=== PATIENT | male | born 1990 | race Caucasian/White ===

== ENCOUNTER 2020-10-16 01:58 | Emergency (ER) | payer SELFPAY ==
[~2020-10-16] VITALS: Ht 177.8 cm; Wt 111.4 kg
[2020-10-16 03:00] VITALS: BP 149/98
[2020-10-16] MEDS ORDERED: RX-AMOXICILLIN 500 MG CAP #3 PPK PO STA (03:23)
[2020-10-16] MEDS ORDERED: RX-NAPROXEN (NAPROSYN) 250 MG TAB PPK#4 PO STA (03:23)
[2020-10-16] MEDS ORDERED: AMOX875T2 PO (03:25)
[2020-10-16] MEDS ORDERED: NAPR500T8 PO (03:25)
[2020-10-16] MEDS ORDERED: LIDO20SO23 MM (03:25)
--- NOTE | 2020-10-16 03:25 | ED EENT ---
History of Present Illness General Chief Complaint: Dental Problems/Pain Stated Complaint: DENTAL PAIN Nursing Triage Note: AMBULATES TO ROOM #5 WITH C/O DENTAL PAIN. REPORTS DISCOMFORT TO DISTAL R UPPER MOLAR BEAGN ON 10/15/20. STATES, "IT HURTS EVERY TIME I TAKE A BREATH." REPORTS TO HAVE TAKEN 600MG IBUPROFEN AT 2200. Source: patient History of Present Illness Date Seen by Provider: Oct 16, 2020 Time Seen by Provider: 03:15 Initial Comments PT ARRIVES VIA POV FROM HOME C/O DENTAL PAIN--RIGHT UPPER 3RD MOLAR--FOR THE LAST COUPLE OF DAYS HAS HAD SIMILAR PROBLEMS WITH THIS TOOTH IN THE PAST--NEVER GOES TO DENTIST NO FEVER NO SWELLING TO FACE TOOK IBUPROFEN 600 MG AT 2200 TONIGHT, OTHERWISE HAS NOT TAKEN ANYTHING FOR PAIN PCP: ALICIA, BUT NEVER GOES TO OR DENTIST Allergies and Home Medications Allergies Coded Allergies: No Known Drug Allergies (Unverified , 10/16/20) Home Medications Amoxicillin 875 Mg Tablet, 875 MG PO BID Prescribed by: BONIFACIO ANTOINE on 10/16/20 032 Lidocaine HCl 15 Ml Solution, 1-2 ML MM [id number] Prescribed by: BONIFACIO ANTOINE on 10/16/20 0325 Naproxen 500 Mg Tablet.dr, 500 MG PO BID Prescribed by: BONIFACIO ANTOINE on 10/16/20 032 Patient Home Medication List Home Medication List Reviewed: Yes Review of Systems Review of Systems Constitutional: no symptoms reported Eyes: No Symptoms Reported Ears: No Symptoms Reported Nose: no symptoms reported Mouth: see HPI Throat: no symptoms reported Respiratory: no symptoms reported Cardiovascular: no symptoms reported Musculoskeletal: no symptoms reported Skin: no symptoms reported Neurological: No Symptoms Reported Past Ljmxwaq-Ycuuhe-Decqdv Hx Past Med/Social Hx: Reviewed and Corrections made Patient Social History Alcohol Use: Denies Use Drug of Choice: THC Smoking Status: Current Everyday Smoker (1 TO 1 1/2 PPD) Type Used: Cigarettes 2nd Hand Smoke Exposure: Yes Recent Infectious Disease Expo: No Recent Hopitalizations: No Substance type: Marijuana Seasonal Allergies Seasonal Allergies: No Past Medical History Surgeries: No Respiratory: No Cardiac: No Neurological: No Genitourinary: No Gastrointestinal: No Musculoskeletal: No Endocrine: No HEENT: No Cancer: No Psychosocial: No Integumentary: No Blood Disorders: No Physical Exam Vital Signs Vital Signs - First Documented 10/16/20 03:00 Temp 36.9 Pulse 83 Resp 18 B/P (MAP) 149/98 (115) Pulse Ox 96 O2 Delivery Room Air Height, Weight, BMI Height: '" Weight: lbs. oz. kg; 35.00 BMI Method: General Appearance: WD/WN, no apparent distress Eyes: bilateral eye normal inspection Ears: bilateral ear auricle normal, bilateral ear other (LARGE AMOUNT OF CERUMEN BILATERALLY, VISUALIZED ASPECTS OF TM'S APPEAR NORMAL) Nose: normal inspection Mouth/Throat: No mandibular swelling, No maxillary swelling, No trismus; other (RIGHT UPPER 3RD MOLAR DECAYED DOWN TO GUM LINE WITH MILD SURROUNDING INFLAMMATION OF ADJACENT GUM. NO FLUCTUANCE. NO DRAINAGE) Neck: non-tender, full range of motion, supple, normal inspection; No lymphadenopathy (R), No lymphadenopathy (L) Cardiovascular: regular rate, rhythm, no murmur Respiratory: normal breath sounds Neurologic/Psychiatric: milk treater II-XII nml as tested, no motor/sensory deficits, alert, normal mood/affect, oriented x 3 Skin: normal color, warm/dry, tattoos/piercings (TATTOOS) Progress/Results/Core Measures Results/Orders My Orders Orders - BONIFACIO ANTOINE DO Rx-Amoxicillin Capsule (Rx-Polymox Capsu (10/16/20 03:23) Rx-Naproxen (Rx-Naprosyn) (10/16/20 03:23) Lidocaine 2% Viscous 15 Ml (Xylocaine Vi (10/16/20 03:30) Vital Signs/I&O 10/16/20 03:00 Temp 36.9 Pulse 83 Resp 18 B/P (MAP) 149/98 (115) Pulse Ox 96 O2 Delivery Room Air Blood Pressure Mean: 115 Departure Impression Primary Impression: Dental caries Disposition: 01 HOME, SELF-CARE Condition: Stable Departure-Patient Inst. Referrals: [facility] Patient Instructions: Tooth Decay, Adult (DC) Add. Discharge Instructions: FREQUENT [place] SWISHES FOLLOW UP WITH [facility] SOON POSSIBLE--CALL TODAY TO SCHEDULE AN APPOINTMENT All discharge instructions reviewed with patient and/or family. Voiced understanding. Scripts Naproxen (Naproxen) 500 Mg Tablet.dr 500 MG PO BID, #20 TAB Prov: BONIFACIO ANTOINE DO 10/16/20 Lidocaine HCl (Lidocaine HCl Viscous) 15 Ml Solution 1-2 ML MM [id number], #120 ML Prov: BONIFACIO ANTOINE DO 10/16/20 Amoxicillin (Amoxicillin) 875 Mg Tablet 875 MG PO BID, #20 TAB Prov: BONIFACIO ANTOINE DO 10/16/20 BONIFACIO ANTOINE DO Oct 16, 2020 03:25
[2020-10-16] MEDS ORDERED: LIDOCAINE 2% VISCOUS 15 ML UDC MM ONE (03:30)
== END 2020-10-16 03:37 | disposition home or self-care (01) ==
LOC: ER 02:04
DX: K02.9 Dental caries, unspecified (principal); I10 Essential (primary) hypertension; F17.210 Nicotine dependence, cigarettes, uncomplicated
CPT/HCPCS: 99283

== ENCOUNTER → 2021-04-29 | Outpatient (CLI) | payer SELFPAY ==
[~2021-04-29] MED LIST: AMOX875T2 PO; LIDO20SO23 MM; NAPR500T8 PO
--- NOTE | 2021-04-29 08:46 | Diagnostic Imaging Report ---
EXAMINATION: CT chest without contrast. TECHNIQUE: Multiple contiguous axial images were obtained through the chest without the use of intravenous contrast. All CT scans use one or more of the following dose optimizing techniques: automated exposure control, MA and/or KvP adjustment based on patient size and exam type or iterative reconstruction. HISTORY: Hemoptysis, cough COMPARISON: None available. FINDINGS: Thyroid: The thyroid is normal. Mediastinum: Heart size is normal without significant pericardial effusion. The aorta is normal in caliber. No suspicious lymphadenopathy. Lungs and airways: The lungs are clear without consolidation, pleural effusion, or pneumothorax. No suspicious pulmonary lesion. The airways are normal. Upper abdomen: Hepatic steatosis. Musculoskeletal: Degenerative changes of the spine without suspicious osseous lesion or compression fracture. IMPRESSION: 1. No acute abnormality in the chest. Dictated by: Dictated on workstation # [id number]
== END ==
LOC: RAD 08:08
PROVIDERS: ATTEND Nurse Practitioner Family
DX: R04.2 Hemoptysis (principal); R05.9 Cough, unspecified
CPT/HCPCS: 71250

== ENCOUNTER → 2021-04-29 | Outpatient (CLI) | payer SELFPAY ==
[~2021-04-29] MED LIST changes: +RT-ALBUTEROL SULF 2.5 MG/3 ML PRE-MIX VIAL INH ONE
== END ==
LOC: RT 09:15
PROVIDERS: ATTEND Nurse Practitioner Family
DX: R05.9 Cough, unspecified (principal); R06.2 Wheezing
CPT/HCPCS: 94060; 94726; 94729

== ENCOUNTER 2021-10-15 18:22 | Emergency (ER) | payer SELFPAY ==
[~2021-10-15] VITALS: Ht 175 cm; Wt 104.3 kg
[~2021-10-15 18:22] MED LIST changes: -RT-ALBUTEROL SULF 2.5 MG/3 ML PRE-MIX VIAL INH ONE
[2021-10-15 18:35] VITALS: BP 122/80
--- NOTE | 2021-10-15 18:55 | ED EENT ---
History of Present Illness General Chief Complaint: Ear Problems Stated Complaint: EAR PAIN Nursing Triage Note: Pt to ED c/o right ear pain. Has been going on for about a month but worsening today. Source: patient Exam Limitations: no limitations (BRIDGET ROMERO APRN) History of Present Illness Date Seen by Provider: Oct 15, 2021 Time Seen by Provider: 18:50 Initial Comments To ER with some ongoing right ear discomfort for about a month. He ordered an ear video otoscope off of [facility] and saw a lot of earwax and came to the emergency room. Timing/Duration: gradual Severity: moderate Location: ear (R) Associated Symptoms: denies symptoms (BRIDGET ROMERO APRN) Allergies and Home Medications Allergies Coded Allergies: No Known Drug Allergies (Unverified , 10/16/20) Patient Home Medication List Home Medication List Reviewed: Yes (BRIDGET ROMERO APRN) Amoxicillin (Amoxicillin) 875 Mg Tablet, 875 MG PO BID Prescribed by: BONIFACIO ANTOINE on 10/16/20324 Amoxicillin (Amoxicillin) 500 Mg Tablet, 1,000 MG PO TID Prescribed by: BRIDGET ROMERO on 10/15/211855 Budesonide/Formoterol Fumarate (Symbicort 80-4.5 Mcg Inhaler) 10.2 Gm Hfa.aer.ad, 2 PUFF IH BID Prescribed by: BRIDGET ROMERO on 10/15/211855 Ciprofloxacin HCl (Ciloxan) 5 Ml Drops, 5 DROPS OT BID Prescribed by: BRIDGET ROMERO on 10/15/211855 Lidocaine HCl (Lidocaine HCl Viscous) 15 Ml Solution, 1-2 ML MM [id number] Prescribed by: BONIFACIO ANTOINE on 10/16/20324 Naproxen (Naproxen) 500 Mg Tablet.dr, 500 MG PO BID Prescribed by: BONIFACIO ANTOINE on 10/16/20324 Prednisone (Prednisone) 20 Mg Tab, 40 MG PO DAILY Prescribed by: BRIDGET ROMERO on 10/15/211855 Review of Systems Review of Systems Constitutional: see HPI; No chills, No fever Eyes: No Symptoms Reported Ears: See HPI Nose: no symptoms reported Mouth: no symptoms reported Throat: no symptoms reported Respiratory: no symptoms reported Cardiovascular: no symptoms reported Musculoskeletal: no symptoms reported Skin: no symptoms reported (BRIDGET ROMERO APRN) Past Onfyqvr-Vrfmpp-Sjvuxc Hx Patient Social History Tobacco Use?: Yes Tobacco type used: Cigarettes Smoking Status: Current Everyday Smoker Substance use?: No Alcohol Use?: No (BRIDGET ROMERO APRN) Immunizations Up To Date Influenza Vaccine Up-to-Date: No; Not Current (BRIDGET ROMERO APRN) Seasonal Allergies Seasonal Allergies: No (BRIDGET ROMERO APRN) Past Medical History Surgery/Hospitalization HX: GERD Surgeries: No Respiratory: No Cardiac: No Neurological: No Genitourinary: No Gastrointestinal: No Musculoskeletal: No Endocrine: No HEENT: No Cancer: No Psychosocial: No Integumentary: No Blood Disorders: No (BRIDGET ROMERO APRN) Physical Exam Vital Signs Vital Signs - First Documented 10/15/21 18:35 Temp 36.5 Pulse 75 Resp 16 B/P (MAP) 122/80 (94) Pulse Ox 96 O2 Delivery Room Air (BONIFACIO ANTOINE DO) Height, Weight, BMI Height: '" Weight: lbs. oz. kg; 34.00 BMI Method: General Appearance: WD/WN, no apparent distress Eyes: bilateral eye normal inspection, bilateral eye PERRL, bilateral eye EOMI Ears: right ear other (The right ear does have a cerumen impaction. This was irrigated with 50-50 mixture of warm water and hydrogen peroxide using a 10 mL syringe and an 18-gauge IV catheter tip. Then used a plastic cerumen curette to scoop out the cerumen. He was able to hear much better afterwards he states. The canal that was behind the cerumen is inflamed and somewhat tender. The tympanic membrane itself is bulging and erythematous. During irrigation of the ear he was noted to have significant wheezing. I addressed this and he states "yeah, I need to quit smoking. He states that he does have an albuterol inhaler that he does not like to use very much and he used to have a Symbicort inhaler but he ran out of that.); bilateral ear auricle normal, bilateral ear canal normal Neck: non-tender, full range of motion Respiratory: no respiratory distress, no accessory muscle use Gastrointestinal: normal bowel sounds, non tender Neurologic/Psychiatric: alert, normal mood/affect, oriented x 3 Skin: normal color, warm/dry (BRIDGET ROMERO APRN) Progress/Results/Core Measures Results/Orders Vital Signs/I&O 10/15/21 18:35 Temp 36.5 Pulse 75 Resp 16 B/P (MAP) 122/80 (94) Pulse Ox 96 O2 Delivery Room Air (BONIFACIO ANTOINE DO) Blood Pressure Mean: 94 Departure Impression Primary Impression: Impacted cerumen Additional Impressions: Reactive airway disease Otitis media Disposition: HOME, SELF-CARE Condition: Stable Departure-Patient Inst. Decision time for Depature: 18:52 (BRIDGET ROMERO APRN) Referrals: NO,LOCAL PHYSICIAN (PCP/Family) Primary Care Physician Patient Instructions: Ear Wax Impaction (DC) Add. Discharge Instructions: 1. I did send in some prednisone steroids for a few days which will help with your wheezing. Use your albuterol inhaler 2 puffs every 4 hours as needed for wheezing. I also sent in the Symbicort. Take antibiotics as directed. All discharge instructions reviewed with patient and/or family. Voiced understanding. Scripts Budesonide/Formoterol Fumarate (Symbicort 80-4.5 Mcg Inhaler) 10.2 Gm Hfa.aer.ad 2 PUFF IH BID, #1 EA Prov: BRIDGET ROMERO APRN 10/15/21 Ciprofloxacin HCl (Ciloxan) 5 Ml Drops 5 DROPS OT BID for 5 Days, #1 DROPS 0 Refills 3 Drops Each Ear Prov: BRIDGET ROMERO APRN 10/15/21 Prednisone (Prednisone) 20 Mg Tab 40 MG PO DAILY, #8 TAB 0 Refills Prov: BRIDGET ROMERO APRN 10/15/21 Amoxicillin (Amoxicillin) 500 Mg Tablet 1000 MG PO TID, #42 TAB Prov: BRIDGET ROMERO APRN 10/15/21 ATTENDING PHYSICIAN NOTE: I WAS PHYSICALLY PRESENT ER PHYSICIAN, BUT I WAS NOT INVOLVED IN ANY DECISION MAKING OR ANY CARE OF THIS PATIENT. (BONIFACIO ANTOINE DO) BRIDGET ROMERO APRN Oct 15, 2021 18:55 BONIFACIO ANTOINE DO Oct 16, 2021 05:40
[2021-10-15] MEDS ORDERED: CIPR5DRO OT (18:56)
[2021-10-15] MEDS ORDERED: BUDE10.22 IH (18:56)
[2021-10-15] MEDS ORDERED: PRD20T PO (18:56)
[2021-10-15] MEDS ORDERED: AMOX500T2 PO (18:56)
== END 2021-10-15 19:06 | disposition home or self-care (01) ==
LOC: EDUNIT# 18:22 → ER 18:24
DX: H61.21 Impacted cerumen, right ear (principal); J45.909 Unspecified asthma, uncomplicated; H66.91 Otitis media, unspecified, right ear; F17.210 Nicotine dependence, cigarettes, uncomplicated
CPT/HCPCS: 99282

== ENCOUNTER 2021-11-03 16:04 | Emergency (ER) | payer SELFPAY ==
[~2021-11-03] VITALS: Ht 177.8 cm; Wt 108.8 kg
[~2021-11-03 16:04] MED LIST changes: +AMOX500T2 PO; +BUDE10.22 IH; +CIPR5DRO OT; +PRD20T PO
[2021-11-03] MEDS ORDERED: ONDA4TAB11 PO (16:26)
--- NOTE | 2021-11-03 16:27 | ED GI ---
General Chief Complaint: Abdominal/GI Problems Stated Complaint: NORAVIRUS EXPOSURE Nursing Triage Note: PT AMB TO RM 8 WITH COMPLAINT OF DIARRHEA, HEADACHE, RUNNY NOSE, COUGH SINCE WEDNESDAY. Source of Information: Patient Exam Limitations: No Limitations History of Present Illness Date Seen by Provider: Nov 03, 2021 Time Seen by Provider: 16:09 Initial Comments Patient to the ER by private conveyance chief complaint of 1 to 2 days of nausea vomiting diarrhea. He is not nauseated right now. No fevers or chills. Does not feel dehydrated. Been drinking lots of fluids. He found out from his that one of his cousins who he was exposed to was diagnosed with norovirus. No history of immunocompromise. He is not diabetic nor does have any known medical history. No abdominal surgeries. He did have a pseudomonal infection in his left hip soft tissue that took about 7 months to beat a few years ago. Allergies and Home Medications Allergies Coded Allergies: No Known Drug Allergies (Unverified , 10/16/20) Patient Home Medication List Home Medication List Reviewed: Yes Amoxicillin (Amoxicillin) 875 Mg Tablet, 875 MG PO BID Prescribed by: BONIFACIO ANTOINE on 10/16/20324 Amoxicillin (Amoxicillin) 500 Mg Tablet, 1,000 MG PO TID Prescribed by: BRIDGET ROMERO on 10/15/211855 Budesonide/Formoterol Fumarate (Symbicort 80-4.5 Mcg Inhaler) 10.2 Gm Hfa.aer.ad, 2 PUFF IH BID Prescribed by: BRIDGET ROMERO on 10/15/211855 Ciprofloxacin HCl (Ciloxan) 5 Ml Drops, 5 DROPS OT BID Prescribed by: BRIDGET ROMERO on 10/15/211855 Lidocaine HCl (Lidocaine HCl Viscous) 15 Ml Solution, 1-2 ML MM [id number] Prescribed by: BONIFACIO ANTOINE on 10/16/20324 Naproxen (Naproxen) 500 Mg Tablet.dr, 500 MG PO BID Prescribed by: BONIFACIO ANTOINE on 10/16/20324 Prednisone (Prednisone) 20 Mg Tab, 40 MG PO DAILY Prescribed by: BRIDGET ROMERO on 10/15/211855 Review of Systems Review of Systems Constitutional: No chills, No diaphoresis EENTM: No Blurred Vision, No Double Vision Respiratory: Denies Cough, Denies Shortness of Air Cardiovascular: Denies Chest Pain, Denies Lightheadedness Gastrointestinal: Denies Constipated; Diarrhea, Nausea, Vomiting Genitourinary: Denies Discharge, Denies Drainage Musculoskeletal: No back pain, No joint pain Skin: No pruritus, No rash All Other Systems Reviewed Negative Unless Noted: Yes Past Xkeebfj-[place]-Vaally Hx Patient Social History Tobacco Use?: Yes Tobacco type used: Cigarettes Smoking Status: Current Everyday Smoker Use of E-Cig and/or Vaping dev: No Substance use?: Yes Substance type: Marijuana Alcohol Use?: No Pt feels they are or have been: No Immunizations Up To Date Influenza Vaccine Up-to-Date: No; Not Current Seasonal Allergies Seasonal Allergies: No Past Medical History Surgery/Hospitalization HX: GERD Surgeries: No Respiratory: No Cardiac: No Neurological: No Genitourinary: No Gastrointestinal: No Musculoskeletal: No Endocrine: No HEENT: No Cancer: No Psychosocial: No Integumentary: No Blood Disorders: No Physical Exam Vital Signs Vital Signs - First Documented 11/03/21 16:13 Temp 37.3 Pulse 101 Resp 20 B/P (MAP) 121/72 (88) Pulse Ox 94 O2 Delivery Room Air Capillary Refill : Less Than 3 Seconds Height/Weight/BMI Height: '" Weight: lbs. oz. kg; 34.00 BMI Method: General Appearance: WD/WN, no apparent distress HEENT: PERRL/EOMI, pharynx normal Neck: non-tender, full range of motion, supple, normal inspection Respiratory: no respiratory distress, no accessory muscle use Cardiovascular: normal peripheral pulses, regular rate, rhythm Gastrointestinal: normal bowel sounds, non tender, soft Neurologic/Psychiatric: alert, normal mood/affect, oriented x 3 Skin: normal color, warm/dry Progress/Results/Core Measures Results/Orders Vital Signs/I&O 11/03/21 16:13 Temp 37.3 Pulse 101 Resp 20 B/P (MAP) 121/72 (88) Pulse Ox 94 O2 Delivery Room Air Blood Pressure Mean: 88 Progress Progress Note : Time: 16:24 Progress Note Patient has aseptic vital signs other than heart rate of 100 however he appears anxious. He is not need anything for nausea at this time. Gave him some conservative counseling and expectations. Return precautions discussed. We will give him some Zofran and told him to get loperamide if he needs it. Departure Impression Primary Impression: [place] virus enteritis Disposition: HOME, SELF-CARE Condition: Stable Departure-Patient Inst. Decision time for Depature: 16:25 Referrals: NO,LOCAL PHYSICIAN (PCP/Family) Primary Care Physician Patient Instructions: Viral Gastroenteritis, Adult (DC) Add. Discharge Instructions: This virus typically last 3 to 5 days will result in some nausea vomiting and diarrhea. As long as you can keep ahead of your symptoms and drink plenty of fluids you will not get dehydrated and should be just fine. Return to the ER if you are unable to maintain hydration despite the following medications. Ondansetron 1 tablet under the tongue every 6 hours as needed for nausea or vomiting. Loperamide/Imodium 2 tablets for loose watery stools followed by 1 tablet every 4 hours afterwards that you continue to have loose, watery stools. It is easy to catch this virus so use Lysol, hand sanitizers wash your hands and do not let anybody eat after you. If someone in your family catches it just make sure there following the same steps. Follow-up with primary care as necessary for continued management. All discharge instructions reviewed with patient and/or family. Voiced understanding. Scripts Ondansetron (Ondansetron Odt) 4 Mg Tab.rapdis 4 MG PO Q6H PRN for NAUSEA/VOMITING, #12 TAB 0 Refills Prov: KYLE ALVAREZ 11/03/21 Work/School Note: Work Release Form Date Seen in the Emergency Department: Nov 03, 2021 Return to Work: Nov 07, 2021 Restrictions: No Restrictions Other Restrictions Listed Below: May return sooner if 24 hours symptom-free without meds to mask symptoms. KYLE ALVAREZ Nov 03, 2021 16:27
[2021-11-03 16:32] VITALS: BP 121/72
== END 2021-11-03 16:32 | disposition home or self-care (01) ==
LOC: EDUNIT# 16:04 → ER 16:07
DX: A08.11 Acute gastroenteropathy due to Norwalk agent (principal); F17.210 Nicotine dependence, cigarettes, uncomplicated
CPT/HCPCS: 99282